=== PATIENT | male | born 1995 | race Caucasian/White ===

== ENCOUNTER 2023-09-25 00:04 | Emergency (ER) | payer SELFPAY ==
[~2023-09-25] VITALS: Ht 172.7 cm; Wt 73.0 kg
[2023-09-25 00:09] VITALS: O2SAT 98
[2023-09-25] MEDS ORDERED: KETOROLAC 60MG/2ML VIAL IM ONE (00:45)
[2023-09-25 01:05] LABS: BASOPHILS % 0.4 % (0.0-2.0); EOSINOPHILS % 1.3 % (0.0-5.0); HEMATOCRIT. 44.7 % (42.0-52.0); HEMOGLOBIN. 14.8 g/dL (14.0-18.0); LYMPHOCYTES % 15.2 % (20.0-50.0); MEAN CORPUSCULAR HEMOGLOBIN 28.7 pg (28.0-32.0); MEAN CORPUSCULAR HGB CONC 33.2 g/dL (31.0-37.0); MEAN CORPUSCULAR VOLUME 86.7 fL (80.0-94.0); MEAN PLATELET VOLUME 6.6 fl (7.4-10.4); MONOCYTES % 10.2 % (2.0-8.0); NEUTROPHILS % 72.9 % (40.0-76.0); PLATELET 381 x1000/uL (130-400); RED BLOOD CELL COUNT 5.16 mill/uL (4.7-6.1); RED CELL DISTRIBUTION WIDTH 13.8 % (11.6-14.6); WHITE BLOOD COUNT 9.4 x1000/uL (4.5-11.0)
[2023-09-25 01:11] LABS: CHLORIDE 104 mEq/L (98-107); POTASSIUM 4.1 mEq/L (3.5-5.1); SODIUM 138 mEq/L (136-145)
[2023-09-25 01:12] LABS: CALCIUM 9.4 mg/dL (8.7-10.4); CARBON DIOXIDE 29 mEq/L (21-32)
[2023-09-25 01:15] LABS: PROTHROMBIN TIME 11.1 sec (9.6-11.0)
[2023-09-25 01:17] LABS: GLUCOSE 90 mg/dL (70-105); UREA NITROGEN BLOOD 11 mg/dL (9-23)
[2023-09-25 01:19] LABS: ALANINE AMINOTRANSFERASE 15 IU/L (10-49); ALBUMIN 4.7 g/dL (3.2-4.8); ASPARTATE AMINOTRANSFERASE 21 IU/L (<34)
[2023-09-25 01:20] LABS: BILIRUBIN DIRECT 0.2 mg/dL (<=3.0); BILIRUBIN TOTAL 0.5 mg/dL (0.1-1.0); PROTEIN TOTAL 7.5 g/dL (6.0-8.3)
[2023-09-25 01:21] LABS: ETHANOL BLOOD < 10 mg/dL (<10)
[2023-09-25] MEDS: KETOROLAC 30MG/ML VIAL IM NR (01:51)
[2023-09-25 02:10] LABS: CLARITY URINE CLEAR (CLEAR); COLOR URINE YELLOW (YELLOW); GLUCOSE URINE NEGATIVE (NEGATIVE); KETONES URINE NEGATIVE (NEGATIVE); LEUKOCYTE ESTERASE URINE 2+ (NEGATIVE); NITRITE URINE NEGATIVE (NEGATIVE); OCCULT BLOOD URINE NEGATIVE (NEGATIVE); PH URINE 6.5 (4.5-8.0); PROTEIN URINE TRACE (NEGATIVE); SPECIFIC GRAVITY URINE 1.022 (1.005-1.030)
[2023-09-25] MEDS ORDERED: CEPH500C2 MT (02:16)
[2023-09-25 02:38] LABS: BACTERIA URINE TRACE; RBC URINE NONE SEEN /hpf (0-2); SQUAMOUS EPITHELIAL CELL URINE FEW /lpf (RARE/1+); WBC URINE 15-25 /hpf (0-2)
[2023-09-25 02:50] VITALS: BP 122/68; PULSE 88; RESP 18; TEMP 98.1
== END 2023-09-25 02:53 | disposition home or self-care (01) ==
LOC: ER 00:04
DX: R10.816 Epigastric abdominal tenderness (principal); R11.2 Nausea with vomiting, unspecified; Z87.442 Personal history of urinary calculi
CPT/HCPCS: 80076; 80048; 81003; 80320; 83690; 85025; 85610; 87086; 36415; 74176; 96372; 99285; J1885; G0480

== ENCOUNTER 2024-09-25 13:29 | Emergency (ER) | payer MEDICAID, OTHER ==
[~2024-09-25] VITALS: Ht 172.7 cm; Wt 80.0 kg
[~2024-09-25 13:29] MED LIST: CEPH500C2 MT
[2024-09-25 13:38] VITALS: O2SAT 98
[2024-09-25 13:45] VITALS: BP 114/54; PULSE 104; RESP 14; TEMP 37.1; O2SAT 98
== END 2024-09-25 13:46 ==
LOC: ER 13:29
DX: S01.81XA Laceration without foreign body of other part of head, initial encounter (principal); W01.0XXA Fall on same level from slipping, tripping and stumbling without subsequent striking against object, initial encounter; Y92.480 Sidewalk as the place of occurrence of the external cause; Y93.02 Activity, running; Y99.8 Other external cause status
CPT/HCPCS: 99283